=== PATIENT | male | born 1985 | race Caucasian/White ===

== ENCOUNTER → 2017-11-20 | Outpatient (CLI) | payer OTHER | END | disposition home or self-care (01) | LOC: CFH 16:16 | PROVIDERS: ATTEND Radiology Diagnostic Radiology | DX: S83.92XA Sprain of unspecified site of left knee, initial encounter (principal); M22.42 Chondromalacia patellae, left knee; M25.462 Effusion, left knee; W01.0XXA Fall on same level from slipping, tripping and stumbling without subsequent striking against object, initial encounter ==

== ENCOUNTER 2018-04-09 08:16 | Day surgery (SDC) | payer OTHER ==
[~2018-04-09] VITALS: Ht 195.6 cm; Wt 151.0 kg
[~2018-04-09 08:16] MED LIST: LIDOCAINE/PF 1%-EPI 1:200K, 30 ML ONE; ROPIvacaine/PF 0.5%, 30 ML ONE
[2018-04-09] MEDS ORDERED: LACTATED RINGERS 1,000 ML IV SCH (08:42)
[2018-04-09 08:48] VITALS: BP 144/99
[2018-04-09] MEDS ORDERED: MIDAZOLAM 1 MG/ML, 2ML ONE (08:48)
[2018-04-09] MEDS ORDERED: FENTANYL PF 250 MCG/5ML ONE (08:48)
[2018-04-09] MEDS ORDERED: CEFAZOLIN 1,000 MG ONE ×3 (08:49→09:19)
[2018-04-09] MEDS ORDERED: SODIUM CHLORIDE 0.9% PF 10ML ONE (08:49)
[2018-04-09] MEDS ORDERED: PROPOFOL 10 MG/ML, 20ML ONE ×2 (08:50→09:22)
[2018-04-09] MEDS ORDERED: KETOROLAC 30 MG/1 ML ONE (08:50)
[2018-04-09] MEDS ORDERED: GABEPENTIN PO (08:55)
[2018-04-09] MEDS ORDERED: BUPROPION PO (08:55)
[2018-04-09] MEDS ORDERED: SEROQUEL PO (08:55)
[2018-04-09] MEDS ORDERED: LISINOPRIL PO (08:55)
[2018-04-09 09:21] LABS: ALANINE AMINOTRANSFERASE 32 U/L (12-78); ANION GAP 9 mmol/L (5-15); CALCIUM 8.7 mg/dL (8.5-10.1); CHLORIDE 109 mmol/L (98-107); CREATININE 1.16 mg/dL (0.7-1.3)
[2018-04-09 09:23] LABS: ALKALINE PHOSPHATASE 51 U/L (45-117); BILIRUBIN,TOTAL 0.3 mg/dL (0.2-1.0); TOTAL PROTEIN 7.3 g/dL (6.4-8.2)
[2018-04-09] MEDS ORDERED: ONDANSETRON 2MG/ML, 2ML IV PRN (09:30)
[2018-04-09] MEDS ORDERED: LABETALOL 5MG/ML, 20ML IV PRN (09:30)
[2018-04-09] MEDS ORDERED: MORPHINE SULFATE 4 MG/ML, 1ML IVPush PRN (09:30)
[2018-04-09] MEDS ORDERED: PROMETHAZINE 12.5 MG SUPP PR PRN (09:30)
[2018-04-09] MEDS ORDERED: hydrALAzine 20 MG/ML, 1ML IV PRN (09:30)
[2018-04-09] MEDS ORDERED: PROMETHAZINE 25 MG/ML, 1ML IM PRN ×2 (09:30)
[2018-04-09] MEDS ORDERED: ACETAMINOPHEN 325 MG TABLET PO PRN (09:30)
[2018-04-09] MEDS ORDERED: PROMETHAZINE 25 MG SUPP PR PRN (09:30)
[2018-04-09] MEDS ORDERED: MEPERIDINE/PF 25MG/0.5ML IVPush PRN (09:30)
[2018-04-09] MEDS ORDERED: HYDROmorphone 2 MG/ML, 1ML IVPush PRN (09:30)
[2018-04-09] MEDS ORDERED: ONDANSETRON ODT 8 MG PO PRN (09:30)
[2018-04-09] MEDS ORDERED: PROMETHAZINE 25 MG/ML, 1ML IV PRN (09:30)
[2018-04-09] MEDS ORDERED: FENTANYL PF 100 MCG/2ML IV PRN (09:30)
[2018-04-09] MEDS ORDERED: OXYcodone 5 MG/5 ML ORAL.SOL UDC ONE (10:15)
[2018-04-09] MEDS ORDERED: ACETAMINOPHEN 325 MG TABLET ONE (10:15)
[2018-04-09] MEDS: OXYcodone 5 MG/5 ML ORAL.SOL UDC PO PRN ×2 (10:17→11:06)
== END 2018-04-09 12:10 | disposition home or self-care (01) ==
LOC: OUT 08:16
PROVIDERS: ATTEND Orthopaedic Surgery
DX: M94.262 Chondromalacia, left knee (principal); M65.862 Other synovitis and tenosynovitis, left lower leg; D64.9 Anemia, unspecified; E11.9 Type 2 diabetes mellitus without complications; I10 Essential (primary) hypertension; F31.9 Bipolar disorder, unspecified; Z87.39 Personal history of other diseases of the musculoskeletal system and connective tissue
CPT/HCPCS: 29875; 36415; 80053; J0690; J1885; J2250; J2704; J2795; J3010; J3490; J7120